=== PATIENT | female | born 1960 | race American Indian/Alaskan Native ===

== ENCOUNTER 2016-08-31 06:50 | Day surgery (SDC) | payer MEDICARE ==
--- NOTE | 2016-08-31 07:45 | Anesthesia Consultation ---
Anesthesia Consult and Med Hx Date of service: 08/31/16 - Airway Anesthetic Teeth Evaluation: Good ROM Head & Neck: Adequate Mental/Hyoid Distance: Adequate Mallampati Class: Class II Intubation Access Assessment: Probably Good - Pulmonary Exam CTA: Yes - Cardiac Exam Cardiac Exam: RRR - Pre-Operative Health Status ASA Pre-Surgery Classification: ASA3 Proposed Anesthetic Plan: MAC - Pulmonary Hx Asthma: Yes (uses inhaler) - Cardiovascular System Hx Hypertension: Yes - Other Systems Hx Alcohol Use: Yes (occasional) Hx Obesity: Yes
--- NOTE | 2016-08-31 07:46 | Anesthesia Day of Surgery ---
Anesthesia Day of Surgery - Day of Surgery Patient Examined: Yes Patient H&P Reviewed: Yes Patient is NPO: Yes
[2016-08-31] MEDS ORDERED: NACL 0.9% 1000 ML 1,000 ML IV SCH (08:00)
--- NOTE | 2016-08-31 08:24 | Operative Report ---
Operative Report Operative Report: OPERATIVE REPORT - EGD DATE 08/31/2016 SURGERY: Upper endoscopy. SURGEON: Grey Lopez M.D. CONCRETE CRAFTSMAN: Sukhwinder Velásquez MD PRE OP DX: Dyspepsia POST OP DX: Hiatal Hernia. Subcentimeter D1 polyps TYPE OF ANESTHESIA: MAC. ESTIMATED BLOOD LOSS: None. COMPLICATIONS: None. SPECIMENS REMOVED: None. FINDINGS: 1. Hiatal hernia. 2. Multiple subcentimeter duodenal polyps (D1) 2. Otherwise, normal esophagus, stomach and first portion of duodenum. INDICATIONS:INDICATION FOR PROCEDURE: Patient is a 56-year-old female with a long history of morbid obesity. She is planned to have a weight loss procedure and is here for preoperative planning EGD. PROCEDURE DETAILS: After consent was reviewed, patient was taken back to the operating room where patient was placed in the left lateral decubitus position and a bite block was placed in the mouth. After a time-out was called, MAC anesthesia was initiated. I then passed the endoscope into her oropharynx, into her esophagus, visualized the entire esophagus, which was all within normal limits. I then visualized the stomach and the first portion of the duodenum and there were multiple subcentimeter duodenal polyps and no other obvious abnormalities I could clearly visualize. I then retroflexed the scope in the stomach and visualized the hiatus and I could see a hiatal hernia. I then desufflated the stomach and removed the endoscope. Patient tolerated procedure well and was transferred to recovery room in good and stable condition.
--- NOTE | 2016-08-31 08:25 | Discharge Summary ---
Providers - Providers Date of discharge: 08/31/16 Attending physician: MATTHEW VIGIL Primary care physician: MATTHEW VIGIL Hospitalization Reason for admission: outpateint EGD Condition: Stable Disposition: DC-01 TO HOME OR SELFCARE Core Measure Documentation - Palliative Care Palliative Care/ Comfort Measures: Not Applicable - Core Measures Any of the following diagnoses?: none Exam - Physical Exam Narrative exam: unchanged from preop - Constitutional Vitals: Temp Pulse Resp BP Pulse Ox 97.7 F 62 15 136/80 95 08/31/16 07:28 08/31/16 07:28 08/31/16 07:28 08/31/16 07:28 08/31/16 07:28 Plan Activity: advance as tolerated Diet: low carbohydrate Follow up with: MATTHEW VIGIL MD [Primary Care Provider] - 7 Days
[2016-08-31] MEDS ORDERED: DIPRIVAN 10 MG/ML IV ONE (08:35)
[2016-08-31] MEDS ORDERED: WATER FOR IRRIG STERILE IR ONE (09:18)
[2016-08-31 09:33] VITALS: BP 147/93
--- NOTE | 2016-08-31 11:50 | Post Anesthesia Evaluation ---
- Post Anesthesia Evaluation Patient Participated: Yes Airway Patent: Yes Stable Respiratory Function: Yes Nausea/Vomiting: No Temp > 96.8F: Yes Pain Manageable: Yes Adequeate Hydration: Yes Anesthesia Complications: No Block Receding Appropriately: Not Applicable Patient on Ventilator: No
== END 2016-08-31 06:51 | disposition home or self-care (01) ==
LOC: GIO 06:50
PROVIDERS: ATTEND Specialist
DX: K44.9 Diaphragmatic hernia without obstruction or gangrene (principal); K31.7 Polyp of stomach and duodenum; I10 Essential (primary) hypertension; J45.998 Other asthma; E78.4 Other hyperlipidemia; F32.9 Major depressive disorder, single episode, unspecified; E66.01 Morbid (severe) obesity due to excess calories; Z68.41 Body mass index [BMI] 40.0-44.9, adult; Z98.890 Other specified postprocedural states; Z79.899 Other long term (current) drug therapy; Z72.89 Other problems related to lifestyle; Z82.49 Family history of ischemic heart disease and other diseases of the circulatory system
CPT/HCPCS: 43235; J2704; J7030

== ENCOUNTER 2017-10-06 11:19 | Emergency (ER) | payer MEDICARE ==
[2017-10-06 11:40] VITALS: BP 104/60
--- NOTE | 2017-10-06 12:17 | Emergency Department Report ---
ED General Adult HPI - General Chief complaint: Abdominal Pain Stated complaint: LIGHTHEADNESS/NAUSEA/ABD PAIN Time Seen by Provider: 10/06/17 11:57 Source: patient Mode of arrival: Ambulatory Limitations: No Limitations - History of Present Illness Initial comments: Patient is 57 years old female with h/o asthma. Patient came to the ER accompanied by her two daughters, complaining of cough and shortness of breath for the last 2 month. Family stated that they just found that there is black mold in the bathroom. Denied any fever nausea or vomiting. No other complaint. - Related Data Home Medications Medication Instructions Recorded Confirmed Last Taken Furosemide [Lasix] 20 mg PO QDAY 09/13/16 09/14/16 09/13/16 Lovastatin [Altoprev] 20 mg PO QPM 09/13/16 09/14/16 09/13/16 amLODIPine [Norvasc] 5 mg PO DAILY 09/13/16 09/14/16 09/14/16 06:30 Allergies Allergy/AdvReac Type Severity Reaction Status Date / Time No Known Allergies Allergy Verified 09/14/16 07:17 ED Review of Systems ROS: Stated complaint: LIGHTHEADNESS/NAUSEA/ABD PAIN Other details as noted in HPI Comment: All other systems reviewed and negative Constitutional: denies: chills, fever Cardiovascular: denies: chest pain, palpitations Gastrointestinal: denies: abdominal pain, nausea Neurological: denies: headache, weakness ED Past Medical Hx - Past Medical History Previous Medical History?: Yes Hx Hypertension: Yes (2010) Hx Arthritis: Yes Hx Asthma: Yes (uses inhaler) - Surgical History Past Surgical History?: Yes Additional Surgical History: gastric sleeve - Social History Smoking Status: Never Smoker Substance Use Type: None - Medications Home Medications: Home Medications Medication Instructions Recorded Confirmed Last Taken Type Furosemide [Lasix] 20 mg PO QDAY 09/13/16 09/14/16 09/13/16 History Lovastatin [Altoprev] 20 mg PO QPM 09/13/16 09/14/16 09/13/16 History amLODIPine [Norvasc] 5 mg PO DAILY 09/13/16 09/14/16 09/14/16 06:30 History ED Physical Exam - General Limitations: No Limitations General appearance: alert, in no apparent distress - Head Head exam: Present: atraumatic, normocephalic, normal inspection - Eye Eye exam: Present: normal appearance - ENT ENT exam: Present: normal exam, normal orophraynx, mucous membranes moist - Neck Neck exam: Present: normal inspection, full ROM. Absent: tenderness, meningismus, lymphadenopathy, thyromegaly - Respiratory Respiratory exam: Present: normal lung sounds bilaterally. Absent: respiratory distress, wheezes, rales, chest wall tenderness - Cardiovascular Cardiovascular Exam: Present: regular rate, normal rhythm, normal heart sounds - GI/Abdominal GI/Abdominal exam: Present: soft, normal bowel sounds. Absent: distended, tenderness, guarding, rebound, rigid, organomegaly, mass, bruit, pulsatile mass , hernia - Extremities Exam Extremities exam: Present: normal inspection, full ROM, normal capillary refill - Back Exam Back exam: Present: normal inspection, full ROM - Neurological Exam Neurological exam: Present: alert, oriented X3, CN II-XII intact - Skin Skin exam: Present: warm, intact, normal color ED Course Vital Signs 10/06/17 11:37 Temperature 99.0 F Pulse Rate 65 Respiratory 18 Rate Blood Pressure 104/60 O2 Sat by Pulse 97 Oximetry ED Medical Decision Making - Radiology Data Radiology results: report reviewed Referring Physician: GAUDENCIO HANCOCK Patient Name: GAVIN GRUBER Date of : 1960 Sex: Female Report Date: 2017-10-06 Report Status: [place] [address] XRay Report Signed Patient: GAVIN GRUBER MR#: [id number] : 1960 Acct:[id number] Age/Sex: 57 / F ADM Date: 10/06/17 Loc: ED Attending Dr: Ordering Physician: GAUDENCIO HANCOCK Date of Service: 10/06/17 Procedure(s): XR chest 1V ap Accession Number(s): [id number] cc: GAUDENCIO HANCOCK Fluoro Time In Minutes: AP CHEST: HISTORY: Cough, exposure to black mold AP view of the chest demonstrates a normal mediastinal and cardiac contour with clear lungs and normal bony and soft tissue structures. IMPRESSION: Unremarkable AP chest. Transcribed By: TTR Dictated By: JOSE F SANCHES JR, MD Electronically Authenticated By: JOSE F SANCHES JR, MD Signed Date/Time: 10/06/171250 DD/ 50 TD/TT: 10/06/171250 Critical care attestation.: If time is entered above; I have spent that time in minutes in the direct care of this critically ill patient, excluding procedure time. ED Disposition Clinical Impression: Cough, Mold exposure Disposition: DC- TO HOME OR SELFCARE Is pt being admited?: No Condition: Stable Instructions: Abdominal Pain (ED), Chronic Cough (ED) Referrals: PRIMARY CARE, [Primary Care Provider] - 3-5 Days
--- NOTE | 2017-10-06 12:52 | XRay Report ---
AP CHEST: HISTORY: Cough, exposure to black mold AP view of the chest demonstrates a normal mediastinal and cardiac contour with clear lungs and normal bony and soft tissue structures. IMPRESSION: Unremarkable AP chest.
[2017-10-06] MEDS ORDERED: TYLENOL PO ONE (13:14)
[2017-10-06] MEDS ORDERED: TYLENOL ONE (13:17)
== END 2017-10-06 13:28 | disposition home or self-care (01) ==
LOC: ED 11:19
DX: R05 Cough (principal); I10 Essential (primary) hypertension; M19.90 Unspecified osteoarthritis, unspecified site; J45.909 Unspecified asthma, uncomplicated; Z77.120 Contact with and (suspected) exposure to mold (toxic)
CPT/HCPCS: 71045; 99283

== ENCOUNTER 2018-04-10 03:26 | Emergency (ER) | payer MEDICARE ==
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
== END 2018-04-10 08:07 | disposition home or self-care (01) ==
LOC: ED 03:26
CPT/HCPCS: 99282

== ENCOUNTER 2019-11-08 21:30 | Emergency (ER) | payer MEDICARE ==
[2019-11-08 22:02] VITALS: BP 139/82
[2019-11-08 22:53] LABS: Bilirubin,Urine NEG (Negative); Blood,Urine NEG (Negative); Color,Urine Yellow (Yellow); Mucus,Urine FEW /HPF; Protein,Urine <15 mg/dL mg/dL (Negative); Urobilinogen,Urine < 2.0 mg/dL (<2.0); WBC,Urine < 1.0 /HPF (0.0-6.0)
[2019-11-09] MEDS ORDERED: ONDANSETRON 4 MG/2 ML INJ IV ONE (00:41)
[2019-11-09] MEDS ORDERED: KETOROLAC 30 MG/1 ML INJ IV ONE (00:41)
--- NOTE | 2019-11-09 00:52 | Emergency Department Report ---
ED Abdominal Pain HPI - General Chief Complaint: Abdominal Pain Stated Complaint: ABD PAIN Source: patient Mode of arrival: Ambulatory Limitations: No Limitations - History of Present Illness Initial Comments: Patient is a 59-year-old -[place] female with a history of hypertension who presents to the ED with complaint of acute onset persistent low abdominal pain in the left lower quadrant with urinary frequency and urgency for the last 3 days. Patient states that she thought that the symptoms are likely due to acute urinary tract infection. Patient states that the pain has been persistent and intermittent. Patient denies dysuria, vaginal bleeding, vaginal discharge, nausea, vomiting, chest pain, shortness of breath, change in vision, dizziness, syncope, fever, chills, cough, sore throat, diarrhea, low back pain or heavy lifting and fall. MD Complaint: abdominal pain, other (urinary urgency and frequency) -: Sudden, days(s) (3) Location: suprapubic Radiation: none Migration to: no migration Severity: severe Severity scale (0 -10): 7 Quality: cramping, aching, sharp Consistency: constant Improves With: nothing Worsens With: nothing Associated Symptoms: denies other symptoms. denies: nausea, vomiting, diarrhea, fever, chills, constipation, hematemesis, hematochezia, melena, hematuria, syncope - Related Data Home Medications Medication Instructions Recorded Confirmed Last Taken Furosemide [Lasix] 20 mg PO QDAY 09/13/16 09/14/16 09/13/16 Lovastatin [Altoprev] 20 mg PO QPM 09/13/16 09/14/16 09/13/16 amLODIPine [Norvasc] 5 mg PO DAILY 09/13/16 09/14/16 09/14/16 06:30 Previous Rx's Medication Instructions Recorded Last Taken Type metroNIDAZOLE [Flagyl] 500 mg PO Q12HR #20 tab 04/10/18 Unknown Rx Acyclovir [Zovirax Tab] 400 mg PO Q8H #21 tab 06/18/19 Unknown Rx Prednisone [predniSONE 10 mg 10 mg PO .TAPER #1 tab.ds.pk 06/18/19 Unknown Rx (6-Day Pack, 21 Tabs)] Cyclobenzaprine [Flexeril] 10 mg PO TID PRN #15 tablet 11/09/19 Unknown Rx Dicyclomine [Bentyl] 20 mg PO Q6H PRN #20 tablet 11/09/19 Unknown Rx Ibuprofen [Motrin] 800 mg PO Q8HR PRN #24 tablet 11/09/19 Unknown Rx Allergies Allergy/AdvReac Type Severity Reaction Status Date / Time No Known Allergies Allergy Verified 09/14/16 07:17 ED Review of Systems ROS: Stated complaint: ABD PAIN Other details as noted in HPI Constitutional: denies: chills, fever Eyes: denies: eye pain, eye discharge, vision change ENT: denies: ear pain, throat pain Respiratory: denies: cough, shortness of breath, wheezing Cardiovascular: denies: chest pain, palpitations Endocrine: no symptoms reported Gastrointestinal: abdominal pain. denies: nausea, vomiting, diarrhea, hematochezia Genitourinary: urgency, frequency. denies: dysuria, discharge Musculoskeletal: denies: back pain, joint swelling, arthralgia Skin: denies: rash, lesions Neurological: denies: headache, weakness, paresthesias Psychiatric: denies: anxiety, depression Hematological/Lymphatic: denies: easy bleeding, easy bruising ED Past Medical Hx - Past Medical History Previous Medical History?: Yes Hx Hypertension: Yes (2010) Hx Arthritis: Yes Hx Asthma: Yes (uses inhaler) - Surgical History Past Surgical History?: Yes Additional Surgical History: gastric sleeve - Social History Smoking Status: Never Smoker Substance Use Type: None - Medications Home Medications: Home Medications Medication Instructions Recorded Confirmed Last Taken Type Furosemide [Lasix] 20 mg PO QDAY 09/13/16 09/14/16 09/13/16 History Lovastatin [Altoprev] 20 mg PO QPM 09/13/16 09/14/16 09/13/16 History amLODIPine [Norvasc] 5 mg PO DAILY 09/13/16 09/14/16 09/14/16 06:30 History metroNIDAZOLE [Flagyl] 500 mg PO Q12HR #20 tab 04/10/18 Unknown Rx Acyclovir [Zovirax Tab] 400 mg PO Q8H #21 tab 06/18/19 Unknown Rx Prednisone [predniSONE 10 mg 10 mg PO .TAPER #1 tab.ds.pk 06/18/19 Unknown Rx (6-Day Pack, 21 Tabs)] Cyclobenzaprine [Flexeril] 10 mg PO TID PRN #15 tablet 11/09/19 Unknown Rx Dicyclomine [Bentyl] 20 mg PO Q6H PRN #20 tablet 11/09/19 Unknown Rx Ibuprofen [Motrin] 800 mg PO Q8HR PRN #24 tablet 11/09/19 Unknown Rx ED Physical Exam - General Limitations: No Limitations General appearance: alert, in no apparent distress - Head Head exam: Present: atraumatic, normocephalic, normal inspection - Eye Eye exam: Present: normal appearance, PERRL, EOMI Pupils: Present: normal accommodation - ENT ENT exam: Present: normal exam, normal orophraynx, mucous membranes moist, TM's normal bilaterally, normal external ear exam - Neck Neck exam: Present: normal inspection, full ROM - Respiratory Respiratory exam: Present: normal lung sounds bilaterally. Absent: respiratory distress, wheezes, rales, rhonchi, chest wall tenderness, decreased breath sounds - Cardiovascular Cardiovascular Exam: Present: regular rate, normal rhythm, normal heart sounds. Absent: systolic murmur, diastolic murmur, rubs, gallop - GI/Abdominal GI/Abdominal exam: Present: soft, tenderness (Mildly tender suprapubic and LLQ area), normal bowel sounds. Absent: guarding, rebound, hyperactive bowel sounds, hypoactive bowel sounds - Extremities Exam Extremities exam: Present: normal inspection, full ROM, normal capillary refill - Back Exam Back exam: Present: normal inspection, full ROM. Absent: tenderness, CVA tenderness (R), CVA tenderness (L), muscle spasm, paraspinal tenderness - Neurological Exam Neurological exam: Present: alert, oriented X3, CN II-XII intact, normal gait, reflexes normal - Psychiatric Psychiatric exam: Present: normal affect, normal mood - Skin Skin exam: Present: warm, dry, intact, normal color. Absent: rash ED Course Vital Signs 11/08/19 22:00 Temperature 98.6 F Pulse Rate 74 Respiratory 16 Rate Blood Pressure 139/82 O2 Sat by Pulse 100 Oximetry ED Medical Decision Making - Lab Data Result diagrams: 11/09/19 01:07 11/09/19 01:07 - Radiology Data Radiology results: report reviewed, image reviewed Findings [facility] [address] [place] [address] Cat Scan Report Signed Patient: GAVIN GRUBER MR#: [id number] : 1960 Acct:[id number] Age/Sex: 59 / F ADM Date: 11/08/19 Loc: ED Attending Dr: Ordering Physician: DAMARIS BLOUNT Date of Service: 11/09/19 Procedure(s): CT abdomen pelvis w con Accession Number(s): [id number] cc: DAMARIS BLOUNT CT ABDOMEN AND PELVIS WITH CONTRAST HISTORY: Generalized abdominal pain. COMPARISON: None TECHNIQUE: Routine abdominal and pelvic CT exam performed following intravenous contrast administration. Patient received 100 mm IV Omnipaque 300. All CT scans at this location are per formed using CT dose reduction for ALARA by means of automated exposure control. FINDINGS: CT ABDOMEN: Lung Bases: No significant abnormality. Liver: No significant abnormality. Biliary: No significant abnormality. Spleen: No significant abnormality. Unenlarged. Pancreas: No significant abnormality. Adrenals: No significant abnormality. Kidneys: No significant abnormality. Lymphatics: No lymphadenopathy. Vasculature: No significant abnormality. Bowel/Peritoneum: There are postsurgical changes from prior sleeve gastrectomy. There is a small duodenal diverticulum. There are no acute bowel abnormalities. There is no free air or pneumatosis. Normal appendix. CT PELVIC: : No significant abnormality. Lymphatics: No lymphadenopathy. Osseous Structures: No aggressive appearing osseous lesions. Additional Findings: None IMPRESSION: 1. No acute findings. Signer Name: Jaya Rubio MD Signed: 11/09/2019 2:45 AM Workstation Name: [id number] Transcribed By: MELANIE Dictated By: Jaya Rubio MD Electronically Authenticated By: Jaya Rubio MD Signed Date/Time: 11/09/19244 DD/ 2 TD/TT: - Medical Decision Making This is a 59-year-old -[place] female with a history of hypertension who presents to the ED with complaint of acute onset persistent low abdominal pain in the left lower quadrant with urinary frequency and urgency for the last 3 days. Patient states that she thought that the symptoms are likely due to acute urinary tract infection. Patient states that the pain has been persistent and intermittent. In the ED, patient is alert and oriented x3 and is not in distress. Patient was treated for pain in the ED as well as nausea and vomiting. Lab test results were reviewed and are all nonactionable. Abdomen pelvis CT scan with contrast shows no acute abnormalities. On reevaluation, patient's pain is well controlled medications. Patient was discharged home on pain medications and antiemetics and was advised to follow-up with her primary care physician in 5 to 7 days for reevaluation. Patient was also advised to return to the ED immediately if symptoms get worse. - Differential Diagnosis UTI; Diverticulitis; Colitis; Ovarian cyst; appendicitis; Fibroids Critical care attestation.: If time is entered above; I have spent that time in minutes in the direct care of this critically ill patient, excluding procedure time. ED Disposition Clinical Impression: Abdominal pain, left lower quadrant, Muscular abdominal pain in left lower quadrant Disposition: TO HOME OR SELFCARE Is pt being admited?: No Does the pt Need Aspirin: No Condition: Stable Instructions: Abdominal Pain (ED) Additional Instructions: All lab test results are unremarkable. Abdomen pelvis CT scan with contrast shows no acute abnormalities. Your symptoms are likely due to muscle strain of the abdominal wall. Therefore take pain medications as advised with food, drink plenty of fluids and follow-up with your primary care physician in 5 to 7 days for reevaluation. Return to the ED immediately if symptoms get worse. Prescriptions: Dicyclomine [Bentyl] 20 mg PO Q6H PRN #20 tablet PRN Reason: ABDOMINAL PAIN Cyclobenzaprine [Flexeril] 10 mg PO TID PRN #15 tablet PRN Reason: Muscle Spasm Ibuprofen [Motrin] 800 mg PO Q8HR PRN #24 tablet PRN Reason: Pain , Severe (7-10) Referrals: [facility] [Provider Group] - 3-5 Days Time of Disposition: 03:04 Print Language: ICELANDIC
[2019-11-09 01:52] LABS: Basophils % (Auto) 0.6 % (0.0-1.8); Eosinophils # (Auto) 0.1 K/mm3 (0.0-0.4); Eosinophils % (Auto) 2.1 % (0.0-4.3); Hematocrit 40.1 % (30.3-42.9); Hemoglobin 13.4 gm/dl (10.1-14.3); Lymphocytes % (Auto) 33.8 % (13.4-35.0); Mean Corpuscular HGB Conc 33 % (30-34); Mean Corpuscular Volume 92 fl (79-97); Monocytes # (Auto) 0.5 K/mm3 (0.0-0.8); Monocytes % (Auto) 8.8 % (0.0-7.3); Platelet Count 213 K/mm3 (140-440); Red Blood Count 4.35 M/mm3 (3.65-5.03); Red Cell Distribution Width 14.3 % (13.2-15.2)
[2019-11-09 01:59] LABS: Alanine Aminotransferase 13 units/L (7-56); Albumin 3.9 g/dL (3.9-5); Blood Urea Nitrogen 17 mg/dL (7-17); Calcium 9.2 mg/dL (8.4-10.2); Hemolysis Index 13
[2019-11-09 02:00] LABS: BUN/Creatinine Ratio 24
--- NOTE | 2019-11-09 02:49 | Cat Scan Report ---
CT ABDOMEN AND PELVIS WITH CONTRAST HISTORY: Generalized abdominal pain. COMPARISON: None TECHNIQUE: Routine abdominal and pelvic CT exam performed following intravenous contrast administrat ion. Patient received 100 mm IV Omnipaque 300. All CT scans at this location are performed using CT d ose reduction for ALARA by means of automated exposure control. FINDINGS: CT ABDOMEN: Lung Bases: No significant abnormality. Liver: No significant abnormality. Biliary: No significant abnormality. Spleen: No significant abnormality. Unenlarged. Pancreas: No significant abnormality. Adrenals: No significant abnormality. Kidneys: No significant abnormality. Lymphatics: No lymphadenopathy. Vasculature: No significant abnormality. Bowel/Peritoneum: There are postsurgical changes from prior sleeve gastrectomy. There is a small duod enal diverticulum. There are no acute bowel abnormalities. There is no free air or pneumatosis. Elba l appendix. CT PELVIC: : No significant abnormality. Lymphatics: No lymphadenopathy. Osseous Structures: No aggressive appearing osseous lesions. Additional Findings: None IMPRESSION: 1. No acute findings. Signer Name: Jaya Rubio MD Signed: 11/09/2019 2:45 AM Workstation Name: [id number]
== END 2019-11-09 03:20 | disposition home or self-care (01) ==
LOC: ED 21:30
DX: R10.32 Left lower quadrant pain (principal); R35.0 Frequency of micturition; R39.15 Urgency of urination; I10 Essential (primary) hypertension; M19.91 Primary osteoarthritis, unspecified site; J45.909 Unspecified asthma, uncomplicated; Z98.890 Other specified postprocedural states; Z79.1 Long term (current) use of non-steroidal anti-inflammatories (NSAID); Z79.899 Other long term (current) drug therapy
CPT/HCPCS: 36415; 74177; 80053; 81001; 83690; 85025; 96374; 96375; 99284; J1885; J2405; Q9967